=== PATIENT | female | born 1945 | race Caucasian/White ===

== ENCOUNTER 2018-10-24 09:42 | Observation (INO) | payer BC, OTHER ==
[2018-10-24 10:34] LABS: Absolute Lymphocytes (CBC) 1.6 K/uL (0.7-4.9); Absolute Monocytes 0.7 K/uL (0.1-1.3); Absolute Neutrophil 4.6 K/uL (1.8-8.0); Basophils % 0.6 % (0-1.3); Eosinophils % 1.5 % (0-4.4); Lymphocytes % 22.8 % (15.3-44.8); MPV 9.6 fL (7.6-11.3); Monocytes % 9.3 % (3.3-12.3)
[2018-10-24 11:05] LABS: ALT/SGPT 26 U/L (12-78); AST/SGOT 30 U/L (15-37); Albumin 3.9 g/dL (3.4-5.0); Alkaline Phosphatase 83 U/L (45-117); BUN Blood Urea Nitrogen 22 mg/dL (7-18); Bicarbonate 25 mmol/L (21-32); Bilirubin Direct 0.3 mg/dL (0-0.2); Bilirubin Total 1.3 mg/dL (0.2-1.0); Glucose Level 113 mg/dL (74-106); Lipase 171 U/L (73-393); Potassium 3.8 mmol/L (3.5-5.1); Protein, Total 7.9 g/dL (6.4-8.2); Sodium Level 139 mmol/L (136-145); Troponin (Emerg Dept Use Only) < 0.02 ng/mL (0.0-0.045)
[2018-10-24 11:21] LABS: Urine Blood TRACE (NEG); Urine Glucose NEGATIVE (NEG); Urine Protein 1+ (NEG); Urine Specific Gravity <1.005 (1.005-1.030)
--- NOTE | 2018-10-24 11:47 | RAD REPORT ---
EXAM DESCRIPTION: CTAbdomen Pelvis W Contrast - 10/24/2018 11:22 am CLINICAL HISTORY: Abdominal pain. iv contrast only;Abd pain COMPARISON: No comparisons TECHNIQUE: Biphasic CT imaging of the abdomen and pelvis was performed with 100 ml non-ionic IV cont rast. All CT scans are performed using dose optimization technique as appropriate and may include automated exposure control or mA/KV adjustment according to patient size. FINDINGS: The lung bases are clear. Inflammatory changes are seen along the greater curvature of the stomach. The liver, spleen, pancreas, adrenal glands and kidneys are within normal limits. No bowel obstruction, free air, free fluid or abscess. Sigmoid diverticulosis coli without diverticul itis. The appendix is normal. No evidence of significant lymphadenopathy. Moderate lumbar degenerative changes are present. T12 compression deformity is seen, age undetermined but favored to be chronic. IMPRESSION: Moderate inflammation is seen in the fat along the greater curvature of the stomach. The exact etiology for inflammation in this region is not clear but it may be related to a gastric proce ss such as ulcer or inflammation. Upper endoscopy would be recommended for further assessment. A secondary/less likely possibility would be that the greater curvature inflammation is from the panc reas. Correlation with amylase and lipase levels would be suggested.
--- NOTE | 2018-10-24 11:57 | ER ---
Nurse's Notes [facility] Name: Lisa Espino Age: 73 yrs Sex: Female : 1945 Arrival Date: 10/24/2018 Time: 09:48 Bed 19 Private MD: Diagnosis: Upper abdominal pain, unspecified Presentation: 10/24 09:59 Presenting complaint: Patient states: epigastric discomfort that radiates towards back ss x 2-3 days. Pt reports that the pain is worse when she eats and feels similar to her previous pancreatitis flares ups. Transition of care: patient was not received from another setting of care. Onset of symptoms was October 21, 2018. Risk Assessment: Do you want to hurt yourself or someone else? Patient reports no desire to harm self or others. Initial Sepsis Screen: Does the patient meet any 2 criteria? No. Patient's initial sepsis screen is negative. Does the patient have a suspected source of infection? No. Patient's initial sepsis screen is negative. Care prior to arrival: None. 09:59 Method Of Arrival: Ambulatory ss 09:59 Acuity: KATY 3 ss Historical: - Allergies: 10:04 PENICILLINS; ss 10:04 Sulfa (Sulfonamide Antibiotics); ss 10:04 Clindamycin; ss 10:04 Erythromycin; ss 10:04 Levaquin; ss 10:04 Doxycycline; ss 10:04 Codeine; ss - PMHx: 10:04 Pancreatitis; ss - Immunization history:: Adult Immunizations up to date. - Social history:: Smoking status: Patient/guardian denies using tobacco. - Ebola Screening: : Patient denies exposure to infectious person Patient denies travel to an Ebola-affected area in the 21 days before illness onset. Screenin:30 Abuse screen: Denies threats or abuse. Denies injuries from another. Nutritional aj1 screening: No deficits noted. Tuberculosis screening: No symptoms or risk factors identified. 17:04 Fall Risk No fall in past 12 months (0 pts). No secondary diagnosis (0 pts). IV access aj1 (20 points). Ambulatory Aid- None/Bed Rest/Nurse Assist (0 pts). Gait- Normal/Bed Rest/Wheelchair (0 pts) Mental Status- Oriented to own ability (0 pts). Total Dudley Fall Scale indicates No Risk (0-24 pts). Assessment: 10:30 General: Appears in no apparent distress. uncomfortable, Behavior is calm, cooperative, aj1 appropriate for age. Pain: Complains of pain in epigastric area Pain radiates to back. Neuro: Level of Consciousness is awake, alert, obeys commands, Oriented to person, place, time, situation. Cardiovascular: Patient's skin is warm and dry. Respiratory: Airway is patent Respiratory effort is even, unlabored, Respiratory pattern is regular, symmetrical. GI: Abdomen is non-distended, Bowel sounds present X 4 quads. Abd is soft X 4 quads. : No signs and/or symptoms were reported regarding the genitourinary system. EENT: No signs and/or symptoms were reported regarding the EENT system. Derm: No signs and/or symptoms reported regarding the dermatologic system. Skin is pink, warm \T\ dry. normal. Musculoskeletal: No signs and/or symptoms reported regarding the musculoskeletal system. Circulation, motion, and sensation intact. 11:13 Reassessment: Patient transported to CT via wheelchair. aj1 11:32 Reassessment: Patient appears in no apparent distress at this time. No changes from aj1 previously documented assessment. Patient and/or family updated on plan of care and expected duration. Pain level reassessed. Patient is alert, oriented x 3, equal unlabored respirations, skin warm/dry/pink. Patient returned to ER bed [address] 12:30 Reassessment: Patient appears in no apparent distress at this time. No changes from aj1 previously documented assessment. Patient and/or family updated on plan of care and expected duration. Pain level reassessed. Patient is alert, oriented x 3, equal unlabored respirations, skin warm/dry/pink. 13:01 Reassessment: Dr Mcclain at bedside. aj1 13:30 Reassessment: Patient appears in no apparent distress at this time. No changes from aj1 previously documented assessment. Patient and/or family updated on plan of care and expected duration. Pain level reassessed. Patient is alert, oriented x 3, equal unlabored respirations, skin warm/dry/pink. 14:30 Reassessment: Patient and/or family updated on plan of care and expected duration. Pain aj1 level reassessed. General: Appears in no apparent distress. uncomfortable, Behavior is calm, cooperative, appropriate for age. Neuro: Level of Consciousness is awake, alert, obeys commands, Oriented to person, place, time, situation. Cardiovascular: Patient's skin is warm and dry. Respiratory: Airway is patent Respiratory effort is even, unlabored, Respiratory pattern is regular, symmetrical. GI: Abdomen is non-distended. Derm: Skin is pink, warm \T\ dry. normal. Musculoskeletal: Circulation, motion, and sensation intact. 15:21 Reassessment: Patient appears in no apparent distress at this time. No changes from aj1 previously documented assessment. Patient and/or family updated on plan of care and expected duration. Pain level reassessed. Patient is alert, oriented x 3, equal unlabored respirations, skin warm/dry/pink. 16:30 Reassessment: Patient appears in no apparent distress at this time. No changes from aj1 previously documented assessment. Patient and/or family updated on plan of care and expected duration. Pain level reassessed. Patient is alert, oriented x 3, equal unlabored respirations, skin warm/dry/pink. Vital Signs: 10:36 BP 132 / 51; Pulse 64; Resp 18; Temp 98.2(O); Pulse Ox 100% on R/A; mh5 11:42 BP 118 / 63; Pulse 63; Resp 17; Temp 97.8(O); Pulse Ox 100% on R/A; mh5 12:30 BP 117 / 68; Pulse 62; Resp 18; Pulse Ox 100% on R/A; aj1 13:30 BP 120 / 73; Pulse 59; Resp 18; Pulse Ox 100% on R/A; aj1 14:30 BP 122 / 65; Pulse 66; Resp 18; Pulse Ox 97% ; aj1 15:21 BP 135 / 81; Pulse 62; Resp 18; Pulse Ox 100% on R/A; aj1 16:30 BP 127 / 75; Pulse 62; Resp 18; Pulse Ox 97% on R/A; aj1 ED Course: 09:48 Patient arrived in ED. mr 09:57 Angelica Peacock F[facility]-C [facility]. kb 09:57 Mike Huang MD is Attending Physician. kb 10:00 Moriah Grant, BALDEMAR is Primary Nurse. aj1 10:02 Triage completed. ss 10:03 EKG done, by project technician. reviewed by Angelica Ayush HIGHWAY ENGINEERING TECHNICIAN-C. tc 10:04 Arm band placed on right wrist. ss 10:30 No provider procedures requiring assistance completed. aj1 10:35 Initial lab(s) drawn, by me, sent to lab. Urine collected: clean catch specimen, mh5 cloudy, Amount Voided: 50mL. Inserted saline lock: 22 gauge in left antecubital area, using aseptic technique. Blood collected. 10:35 Patient has correct armband on for positive identification. Placed in gown. Bed in low mh5 position. Call light in reach. Pulse ox on. NIBP on. 11:22 CT Abd/Pelvis - W/Contrast In Process Unspecified. EDMS 11:57 Inga Mcclain MD is Hospitalizing Provider. kb 17:05 Patient admitted, IV remains in place. aj1 Administered Medications: No medications were administered Outcome: 11:57 Decision to Hospitalize by Provider. kb 17:05 Admitted to Med/surg accompanied by tech, via wheelchair, with chart, Report called to ajDonavan Joy RN on 2nd floor 17:05 Condition: stable 17:05 Discharge instructions given to patient, Instructed on the need for admit, Demonstrated understanding of 17:06 Patient left the ED. aj1 Signatures: Dispatcher [employer] EDIL Angelica Peacock, HIGHWAY ENGINEERING TECHNICIAN-C HIGHWAY ENGINEERING TECHNICIAN-Ckb Moriah Grant, RN RN Lisa Agarwal Shelby, BALDEMAR RN Asia Almazan, field software engineer EKG Anna Stanton mh5
--- NOTE | 2018-10-24 11:57 | EDPHYS ---
Physician Documentation [facility] Name: Lisa Espino Age: 73 yrs Sex: Female : 1945 Arrival Date: 10/24/2018 Time: 09:48 Bed 19 Private MD: ED Physician Mike Huang HPI: 10/24 10:53 This 73 yrs old Female presents to ER via Ambulatory with complaints of kb Abdominal Pain, Back Pain. 10:53 The patient presents with abdominal pain in the epigastric area. Onset: The kb symptoms/episode began/occurred 3 day(s) ago. The symptoms radiate to back. Associated signs and symptoms: none. The symptoms are described as constant. Modifying factors: The symptoms are alleviated by nothing, the symptoms are aggravated by food. Severity of pain: At its worst the pain was moderate in the emergency department the pain is unchanged. The patient has experienced similar episodes in the past. The patient has not recently seen a physician. Pt reports epigastric pain since early Wednesday morning. States she ate something that didn't agree with her and she had a glass of wine that didn't agree with her either. Pain gets worse after eating. Feels similar to previous episodes of pancreatitis. Historical: - Allergies: 10:04 PENICILLINS; ss 10:04 Sulfa (Sulfonamide Antibiotics); ss 10:04 Clindamycin; ss 10:04 Erythromycin; ss 10:04 Levaquin; ss 10:04 Doxycycline; ss 10:04 Codeine; ss - PMHx: 10:04 Pancreatitis; ss - Immunization history:: Adult Immunizations up to date. - Social history:: Smoking status: Patient/guardian denies using tobacco. - Ebola Screening: : Patient denies exposure to infectious person Patient denies travel to an Ebola-affected area in the 21 days before illness onset. ROS: 10:52 Constitutional: Negative for fever, chills, and weight loss, Cardiovascular: Negative kb for chest pain, palpitations, and edema, Respiratory: Negative for shortness of breath, cough, wheezing, and pleuritic chest pain, MS/Extremity: Negative for injury and deformity, Skin: Negative for injury, rash, and discoloration, Neuro: Negative for headache, weakness, numbness, tingling, and seizure. 10:52 Abdomen/GI: Positive for abdominal pain. Exam: 10:50 Constitutional: This is a well developed, well nourished patient who is awake, alert, kb and in no acute distress. Head/Face: Normocephalic, atraumatic. Chest/axilla: Normal chest wall appearance and motion. Nontender with no deformity. No lesions are appreciated. Cardiovascular: Regular rate and rhythm with a normal S1 and S2. No gallops, murmurs, or rubs. Normal PMI, no JVD. No pulse deficits. Respiratory: Lungs have equal breath sounds bilaterally, clear to auscultation and percussion. No rales, rhonchi or wheezes noted. No increased work of breathing, no retractions or nasal flaring. Back: No spinal tenderness. No costovertebral tenderness. Full range of motion. Skin: Warm, dry with normal turgor. Normal color with no rashes, no lesions, and no evidence of cellulitis. MS/ Extremity: Pulses equal, no cyanosis. Neurovascular intact. Full, normal range of motion. Neuro: Awake and alert, GCS 15, oriented to person, place, time, and situation. Cranial nerves II-XII grossly intact. Motor strength 5/5 in all extremities. Sensory grossly intact. Cerebellar exam normal. Normal gait. 10:50 ECG was reviewed by the Attending Physician. 10:50 Abdomen/GI: Inspection: abdomen appears normal, Bowel sounds: normal, in all quadrants, Palpation: moderate abdominal tenderness, in the epigastric area. Vital Signs: 10:36 BP 132 / 51; Pulse 64; Resp 18; Temp 98.2(O); Pulse Ox 100% on R/A; mh5 11:42 BP 118 / 63; Pulse 63; Resp 17; Temp 97.8(O); Pulse Ox 100% on R/A; mh5 12:30 BP 117 / 68; Pulse 62; Resp 18; Pulse Ox 100% on R/A; aj1 13:30 BP 120 / 73; Pulse 59; Resp 18; Pulse Ox 100% on R/A; aj1 14:30 BP 122 / 65; Pulse 66; Resp 18; Pulse Ox 97% ; aj1 15:21 BP 135 / 81; Pulse 62; Resp 18; Pulse Ox 100% on R/A; aj1 16:30 BP 127 / 75; Pulse 62; Resp 18; Pulse Ox 97% on R/A; aj1 MDM: 09:57 Patient medically screened. kb 10:53 Data reviewed: vital signs, nurses notes. Data interpreted: Pulse oximetry: on room air kb is 100 %. Interpretation: normal. 11:55 Counseling: I had a detailed discussion with the patient and/or guardian regarding: the kb historical points, exam findings, and any diagnostic results supporting the discharge/admit diagnosis, lab results, radiology results, the need for further work-up and treatment in the hospital. Physician consultation: Inga Mcclain MD was contacted at 11:56, regarding admission, to the medical/surgical unit. patient's condition, and will see patient in ED, shortly. 10/24 10:02 Order name: Basic Metabolic Panel; Complete Time: 11:06 kb 10/24 10:02 Order name: CBC with Diff; Complete Time: 10:35 kb 10/24 10:02 Order name: Hepatic Function; Complete Time: 11:06 kb 10/24 10:02 Order name: Lipase; Complete Time: 11:06 kb 10/24 10:02 Order name: Troponin (emerg Dept Use Only); Complete Time: 11:06 kb 10/24 10:36 Order name: Urine Dipstick--Ancillary (enter results); Complete Time: 11:24 bd 10/24 10:02 Order name: IV Saline Lock; Complete Time: 10:26 kb 10/24 10:02 Order name: Labs collected and sent; Complete Time: 10:26 kb 10/24 10:02 Order name: EKG; Complete Time: 10:03 kb 10/24 10:02 Order name: EKG - Nurse/Tech; Complete Time: 10:26 kb 10/24 11:07 Order name: CT Abd/Pelvis - W/Contrast; Complete Time: 11:48 kb EC:50 Rate is 81 beats/min. Rhythm is regular, Normal Sinus Rhythm. QRS Cliff is Normal. OR kb interval is normal at 138 msec. QRS interval is normal at 88 msec. QT interval is normal at 374 msec. Clinical impression: Normal ECG. Administered Medications: No medications were administered Disposition: 10/24/18 11:57 Hospitalization ordered by Inga Mcclain for Observation. Preliminary diagnosis is Upper abdominal pain, unspecified. - Bed requested for Telemetry/MedSurg (observation). - Status is Observation. aj1 - Condition is Stable. - Problem is new. - Symptoms are unchanged. UTI on Admission? No Addendum: 10/26/2018 07:05 Co-signature as Attending Physician, Mike Huang MD. r n Signatures: Dispatcher [employer] EDMS Angelica Peacock, CUSTOM SHOEMAKER-C CUSTOM SHOEMAKER-Ckb Xiao Alfaro Moriah Manjarrez, RN RN aj1 Mike Huang MD MD rn Smirch, Shelby, RN RN ss Corrections: (The following items were deleted from the chart) 10/24 13:57 11:57 Hospitalization Ordered by Inga Mcclain MD for Observation. Preliminary diagnosis bd is Upper abdominal pain, unspecified. Bed requested for Telemetry/MedSurg (observation). Status is Observation. Condition is Stable. Problem is new. Symptoms are unchanged. UTI on Admission? No. kb 17:06 13:57 10/24/2018 11:57 Hospitalization Ordered by Inga Mcclain MD for Observation. aj1 Preliminary diagnosis is Upper abdominal pain, unspecified. Bed requested for Telemetry/MedSurg (observation). Status is Observation. Condition is Stable. Problem is new. Symptoms are unchanged. UTI on Admission? No. bd
[2018-10-24] MEDS ORDERED: ONDANSETRON 4 MG/2 ML VIAL IV PRN (14:21)
[2018-10-24] MEDS ORDERED: SODIUM CHLORIDE 0.9% 10ML INJ IV PRN (14:21)
--- NOTE | 2018-10-24 15:42 | EKG ---
Test Date: 2018-10-24 Test Time: 10:01:12 Desktop Publishing Specialist: TAYLOR MEASUREMENT RESULTS: Intervals: Rate: 81 FL: 138 QRSD: 88 QT: 374 QTc: 434 [place]: P: 46 FL: 138 QRS: -11 T: 51 INTERPRETIVE STATEMENTS: Normal sinus rhythm Possible Left atrial enlargement Left ventricular hypertrophy Nonspecific T wave abnormality Abnormal ECG No previous ECG available for comparison Electronically Signed On 10-24-18 15:41:32 CDT by Cornell Henson
[2018-10-24] MEDS: METRONIDAZOLE 500mg IVPB 500 MG/100 ML BAG IV SCH (17:25)
[2018-10-24] MEDS: NA CHLORIDE 0.9% 1,000 ML IV SCH (17:25)
[2018-10-24] MEDS ORDERED: TRAMADOL HCL 50 MG TAB PO PRN (18:54)
--- NOTE | 2018-10-24 19:00 | P.HP ---
Certification for Inpatient Patient admitted to: Observation Practitioner: I am a practitioner with admitting privileges, knowledge of patient current condition, hospital course, and medical plan of care. Services: Services provided to patient in accordance with Admission requirements found in Title 42 Section 412.3 of the Code of Federal Regulations Patient History Date of Service: 10/24/18 Reason for admission: Acute abdominal pain History of Present Illness: This is a 73-year-old female with history of cholecystectomy, arthritis lipoma and hypertension admitted for acute epigastric pain. Per patient, she started with this epigastric pain for the past few days, has been progressively worsening. Associated with intermittent diarrhea that is nonbloody and watery. She states that she has several episodes a day. This pain radiates to the back and describes it as sharp type of pain. She states that she cannot eat anything due to the pain. Therefore she came to the ER. In the ER, her vital signs were 132/51, heart rate of 64, respirations of 18, 98 , 100% on room air. Her labs were unremarkable except for total bilirubin indirect bilirubin elevated to 1.3 and 0.3 respectively. Her lipase is normal. Her CT scan of the abdomen showed inflammation in the fat along the greater curvature of the stomach. This could be related to a gastric ulcers/perforation ?. Therefore patient was admitted for observation. Gastroenterology was not contacted from the emergency room. At the time of my exam, she was alert oriented x3, in no acute distress. She is hemodynamically stable. She was admitted for further evaluation of her acute abdominal pain and CT findings. Allergies clindamycin Allergy (Verified 10/24/18 12:55) Itching/Hives/Rash codeine Allergy (Verified 10/24/18 12:55) Itching/Hives/Rash doxycycline Allergy (Verified 10/24/18 12:55) Itching/Hives/Rash erythromycin base Allergy (Verified 10/24/18 12:55) Itching/Hives/Rash levofloxacin [From Levaquin] Allergy (Verified 10/24/18 12:55) Itching/Hives/Rash Penicillins Allergy (Verified 10/24/18 12:55) Itching/Hives/Rash Sulfa (Sulfonamide Antibiotics) Allergy (Verified 10/24/18 12:55) Itching/Hives/Rash acetaminophen [From Darvocet-N] Adverse Reaction (Verified 10/24/18 12:55) Nausea/Vomiting propoxyphene [From Darvocet-N] Adverse Reaction (Verified 10/24/18 12:55) Nausea/Vomiting Home medications list reviewed: Yes Home Medications: Atorvastatin Calcium [Lipitor] 20 mg PO BEDTIME 10/24/18 Losartan Potassium 50 mg PO DAILY 10/24/18 - Past Medical/Surgical History Has patient received pneumonia vaccine in the past: No Diabetic: No -: htn -: hyperlipidemia -: hx cholitis -: gallbladder -: 6-7 surgeries b[place]den wrist -: 3x right knee - Social History Smoking Status: Never smoker Alcohol use: No CD- Drugs: No Caffeine use: No Place of Residence: Home Review of Systems 10-point ROS is otherwise unremarkable Physical Examination - Vital Signs Temperature: 97.6 F Blood Pressure: 150/66 Pulse: 58 Respirations: 18 Pulse Ox (%): 100 - Physical Exam General: Alert, In no apparent distress, Oriented x3 HEENT: Atraumatic, PERRLA, Mucous membr. moist/pink, EOMI, Sclerae nonicteric Neck: Supple, 2+ carotid pulse no bruit, No LAD, Without JVD or thyroid abnormality Respiratory: Clear to auscultation bilaterally, Normal air movement Cardiovascular: Regular rate/rhythm, Normal S1 S2 Gastrointestinal: Normal bowel sounds, Tenderness Musculoskeletal: No tenderness Integumentary: No rashes Neurological: Normal gait, Normal speech, Normal strength at 5/5 x4 extr, Normal tone, Normal affect Lymphatics: No axilla or inguinal lymphadenopathy - Studies Laboratory Data (last 24 hrs) 10/24/18 10:24: WBC 7.0, Hgb 13.9, Hct 40.0, Plt Count 195 10/24/18 10:24: Sodium 139, Potassium 3.8, BUN 22 H, Creatinine 1.07, Glucose 113 H, Total Bilirubin 1.3 H, AST 30, ALT 26, Alkaline Phosphatase 83, Lipase 171 Assessment and Plan - Problems (Diagnosis) (1) Acute abdominal pain Current Visit: Yes Status: Acute Plan: This could be secondary to gastritis versus reflux versus ulcer. Serial abdominal exams to evaluate for an acute abdomen/perf GI consulted, case was discussed with Dr. Hills who is emulsion operator. With patient may benefit from a EGD, if GI agrees. IV Flagyl started. Patient has multiple allergies, discussed allergic reaction to penicillin. Patient states she is hesitant to take any antibiotics without a diagnosis 1st. Will hold off on Rocephin at this time. If no improvement, may discussed regarding antibiotics. Pain control with tramadol. IV Protonix Continue to keep NPO (2) Abnormal finding on CT scan Current Visit: Yes Status: Acute Plan: CT scan of the abdomen with information and fat along the greater curvature. This could be related to a gastric ulcer formation, unspecified etiology for this finding. This could also be related to pancreatitis. Lipase normal, though patient with a history of pancreatitis previously. This could be a mild pancreatitis with normal lipase. Continue keep NPO, IV antibiotics as above. Serial abdominal exam (3) Hypertension Current Visit: No Status: Chronic Plan: Will continue home medication Qualifiers: Hypertension type: essential hypertension Qualified Code(s): I10 - Essential (primary) hypertension - Plan DVT prophylaxis: Encourage ambulation GI prophylaxis: Protonix Diet: NPO Disposition: Admit to floor with tele, pending GI evaluation. - Advance Directives Does patient have a Living Will: No Does patient have a Durable POA for Healthcare: No
[2018-10-24] MEDS ORDERED: CEFTRIAXONE 1 GM/NS 50 ML 1 GM/50 ML BAG IV SCH (21:00)
[2018-10-24] MEDS ORDERED: CIPROFLOXACIN 400mg IV 400 MG/200 ML BAG IV SCH (21:00)
[2018-10-24] MEDS: PANTOPRAZOLE 40 MG INJ IVP SCH (21:23)
[2018-10-25] MEDS: NA CHLORIDE 0.9% 1,000 ML IV SCH ×3 (00:21→10:21)
[2018-10-25] MEDS: METRONIDAZOLE 500mg IVPB 500 MG/100 ML BAG IV SCH ×2 (00:44→08:54)
[2018-10-25 05:51] LABS: Absolute Lymphocytes (CBC) 1.8 K/uL (0.7-4.9); Absolute Monocytes 0.7 K/uL (0.1-1.3); Absolute Neutrophil 2.7 K/uL (1.8-8.0); Basophils % 0.6 % (0-1.3); Eosinophils % 2.6 % (0-4.4); Hematocrit 34.2 % (36.0-45.0); Lymphocytes % 33.3 % (15.3-44.8); MPV 9.1 fL (7.6-11.3); Monocytes % 12.9 % (3.3-12.3); RBC Red Blood Cell Count 3.73 M/uL (3.86-4.86)
[2018-10-25 06:12] LABS: Protein, Total 6.1 g/dL (6.4-8.2)
[2018-10-25] MEDS: PANTOPRAZOLE 40 MG INJ IVP SCH (08:54)
[2018-10-25] MEDS ORDERED: PANTOPRAZOLE 40 MG INJ IVP SCH (09:00)
[2018-10-25] MEDS: PANTOPRAZOLE INJ 80 MG in NA CHLORIDE 0.9% 250 ML IV SCH ×2 (10:09→19:00)
[2018-10-25] MEDS: Meropenem 1,000 MG in NA CHLORIDE 0.9% 100 ML IV SCH ×2 (11:30→17:30)
[2018-10-25] MEDS ORDERED: METHYLPREDNISOLONE 40 MG INJ IV ONE (12:40)
[2018-10-25] MEDS: DIPHENHYDRAMINE 25 MG TAB/CAP PO PRN ×2 (13:08→17:58)
--- NOTE | 2018-10-25 13:25 | CON ---
Additional Consulting Physician: Dr. Trae Hills. Reason For Consultation: Abdominal pain, nausea, vomiting. History Of Presenting Illness: The patient is a 73-year-old woman with history of hypertension, dysl ipidemia, and history of 1 episode of pancreatitis many years ago, came to the ER with complaints of epigastric pain. She says that she had been having this pain for the last few days, but slowly got w orse, also intermittent diarrhea; was admitted to the hospital due to these findings and findings on the CAT scan. When I saw the patient today morning, she said that she felt much better, especially a fter she had received 1 dose of Protonix IV. No fever. No hematemesis, melena, or hematochezia. Allergies: THE PATIENT HAS MULTIPLE ALLERGIES, COMPLICATING HER TREATMENT. PLEASE REFER TO THE [place] T. ESSENTIALLY CEPHALOSPORIN, ERYTHROMYCIN, DOXYCYCLINE, SULFA DRUGS WELL FLUOROQUINOLONES ARE LISTED IN HER ALLERGIES. Home Medications: As in the chart. Past Medical History: As above. Past Surgical History: Cholecystectomy, wrist surgery, and knee surgery. Social History: Denies toxic habits. Review of Systems: GI: As in HPI, otherwise negative. Remainder of 10-point review of system is negative. Physical Examination: Vital Signs: Temperature 97.6, blood pressure 150/66, pulse 58, respiratory rate 18. HEENT: Head, atraumatic and normocephalic. Pupils are equally reactive. Neck: Supple. Chest: Clear to auscultation bilaterally. Abdomen: Soft. Mild epigastric tenderness. Bowel sounds are present. Extremities: No pedal edema. Laboratory Data: Reviewed. 11.7 hemoglobin. Bilirubin has come down to normal. Imaging: CT findings of moderate fat stranding in the fat along the greater curvature of the stomach . Impression: A 73-year-old woman with abdominal pain, abnormal CAT scan with the fat stranding in the greater curvature, which is moderate. In this case, primary differential could be microperforation of deep gastric ulcer, which could self heal. Pancreatitis is a possibility, but less likely. Also, neoplastic process would be less likely. Currently, the patient seems to have improved significantl y. Plan: We will continue current management. The patient really wants to be discharged today. We can start her on clear liquids from the afternoon and see how she tolerates it and then advance to full liquids for the evening. She is already on Flagyl. I did discuss with Dr. Mcclain and Dr. Jones. I w ould recommend adding another antibiotic to give her full coverage. They will discuss with the patie nt and see what is possible. An upper endoscopy would be recommended, however, given the clinical si tuation, I would not want to over insufflate the stomach and cause risking a perforation due to the p resence of a large gastric ulcer if there as the patient does not seem to have any overt active bleed ing and is on the correct treatment with the proton pump inhibitor. We would defer the procedure to at least for 1 to 2 weeks, which will give enough time for some healing to occur, therefore we would do upper endoscopy in 2 weeks' time. This was discussed with the patient and she actually agrees wit h the plan of care. She also wants to go home today. If her condition remains stable and actually i mproved, she probably can be discharged later today or tomorrow with Protonix b.i.d., oral antibiotic s and follow up in our clinic, at which time we will schedule her for an upper endoscopy. If, christofer mckenzie, her condition deteriorates, may need repeat imaging or consider other endoscopic evaluation depending on the clinical scenario. US/RAULL Voice ID: [id number] Report ID: [id number]
[2018-10-25] MEDS ORDERED: Meropenem 1,000 MG in NA CHLORIDE 0.9% 100 ML IV SCH ×2 (18:30→20:00)
[2018-10-25] MEDS ORDERED: ATORVASTATIN 20 MG TAB PO SCH (21:00)
--- NOTE | 2018-10-26 00:37 | DS ---
Date of Discharge: 10/25/2018 [employer]: Dr. Hills with GI. Procedures: None. Code Status: Full. Discharge Diagnoses: 1. Acute abdominal pain, epigastric. 2. Essential hypertension. 3. Mixed hyperlipidemia. 4. Hyperbilirubinemia. Hospital Course: The patient is a 73-year-old female with past medical history of hypertension, hyperlipidemia, comes in with epigastric abdominal pain. The patient was unable to tolerate p.o. intake due to pain. Her workup revealed an elevated bilirubin level. CT scan showed inflammation in the fat along the greater curvature of the stomach, could be related to gastric ulcer or perforation. There was no free air that was noted. The patient was admitted. GI was consulted and Dr. Hills did not recommend an emergent EGD at this time due to the acute inflammation of the abdomen. He feels that this is likely a microperforation of a gastric ulcer. The patient had significant improvement with Protonix. The patient was then started on clear liquid diet and her diet was advanced. She did well with a full liquid diet. The patient is to follow up with GI as an outpatient for EGD in about a week. She will avoid foods or liquor that make her reflux worse. She will be on Protonix twice a day. Overall, the patient did well. She was able to ambulate without difficulty. She was able to tolerate her diet, did not have any further abdominal pain. No blood in the stool or hematemesis. The patient was then cleared for discharge and was sent home in a stable condition. Diet: GI, soft bland diet. Activity: As tolerated. Followup: Follow up with primary care physician in 2-3 days. Follow up with GI , Dr. Hills, in 1 week. Return to ER for worsening condition. Medications: As per medication reconciliation list. Physical Examination: General: Awake, alert, oriented, no acute distress. CV: S1, S2. No murmurs. Respiratory: Moving air well bilaterally. Abdomen: Soft, nontender, nondistended. Positive bowel sounds. Extremities: No clubbing, cyanosis, or edema. Neurologic: Nonfocal. Total time spent discharging the patient was 35 minutes. /TYREL Voice ID: [id number] Report ID: [id number] [facility]
[2018-10-26] MEDS ORDERED: LOSARTAN POTASSIUM 50 MG TABLET PO SCH (09:00)
== END 2018-10-25 20:18 | disposition home or self-care (01) ==
LOC: ER 09:42 → ERHOLD 13:20 → 2ND 16:24
PROVIDERS: ADMIT Family Medicine; ATTEND Family Medicine
DX: I10 Essential (primary) hypertension (principal); R10.13 Epigastric pain; E78.2 Mixed hyperlipidemia; E80.6 Other disorders of bilirubin metabolism; R93.5 Abnormal findings on diagnostic imaging of other abdominal regions, including retroperitoneum; I51.7 Cardiomegaly; R94.31 Abnormal electrocardiogram [ECG] [EKG]; M19.90 Unspecified osteoarthritis, unspecified site; Z79.899 Other long term (current) drug therapy; Z90.49 Acquired absence of other specified parts of digestive tract
CPT/HCPCS: 96365 ×7; 96367 ×4; 93005; 85025 ×2; 80048; 36415; 83735; 84100; 80076; 81003; 84484; 83690; 80053; 74177; 94760 ×3; 99285; Q9967; C9113 ×3; J7030 ×3; J2920; G0378 ×2